=== PATIENT | male | born 1995 | race Hispanic/Latino ===

== ENCOUNTER 2017-11-23 06:41 | Emergency (ER) | payer OTHER ==
[2017-11-23 06:52] VITALS: BMI 23.7
[2017-11-23 06:56] VITALS: BP 142/79; PULSE 84; RESP 16; TEMP 97.6; O2SAT 97
[2017-11-23] MEDS ORDERED: Tdap Vaccine 0.5 ml Vial (10-64 yrs) IM ONE ×2 (07:05→07:47)
[2017-11-23] MEDS ORDERED: Naproxen 500 MG TAB PO ONE ×2 (07:05→07:47)
--- NOTE | 2017-11-23 07:15 | ED PDOC ---
Upper Extremity Pain/Injury Time Seen by Provider: 11/23/17 06:59 Chief Complaint (Nursing): Finger,Hand,&Wrist History Per: Patient (22 yo male here with injury of the right index finger. He closed the car door on it and tried to walk away before he realized it was caught in the door causing hyperextension. He said there was bleeding last night when this happened. There is blood collected under the nail. ) History/Exam Limitations: no limitations Onset/Duration Of Symptoms: Sudden Onset Past Medical History Reviewed: Historical Data Vital Signs: Last Vital Signs Temp 97.6 F 11/23/17 06:52 Pulse 84 11/23/17 06:52 Resp 16 11/23/17 06:52 BP 142/79 11/23/17 06:52 Pulse Ox 97 11/23/17 06:52 - Surgical History Surgical History: No Surg Hx - Family History Family History: States: No Known Family Hx - Immunization History Hx Tetanus Toxoid Vaccination: No - Allergies Allergies/Adverse Reactions: Allergies Allergy/AdvReac Type Severity Reaction Status Date / Time No Known Allergies Allergy Verified 11/23/17 06:51 Review of Systems ROS Statement: Except As Marked, All Systems Reviewed And Found Negative Musculoskeletal: Positive for: Hand Pain (right index finger) Skin: Positive for: Bruising (right index finger nail) Physical Exam - Reviewed Vital Signs Reviewed: Yes - Physical Exam Appears: Positive for: Well, No Acute Distress Head Exam: Positive for: NORMAL INSPECTION, NORMOCEPHALIC Skin: Positive for: Normal Color Eye Exam: Positive for: Normal appearance, EOMI ENT: Positive for: Normal ENT Inspection Neck: Positive for: Supple Respiratory: Negative for: Respiratory Distress Extremity: Positive for: Other (nail hematoma). Negative for: Deformity Neurologic/Psych: Positive for: Alert - ECG O2 Sat by Pulse Oximetry: 97 Medical Decision Making Medical Decision Making: procedure: drainage of blood from subungual hematoma using electrocautery. copious blood was removed. patient feels better. x-rays: no obvious fracture. Disposition - Clinical Impression Clinical Impression: Subungual hematoma of right index finger - Patient ED Disposition Is Patient to be Admitted: No Doctor Will See Patient In The: Office Counseled Patient/Family Regarding: Diagnosis, Need For Followup - Disposition Referrals: Theo Hernandez [Outside] Disposition: Routine/Home Disposition Time: 09:10 Condition: STABLE Instructions: Contusion (DC) Forms: [facility] (Setswana) - POA Present On Arrival: Falls Or Trauma
--- NOTE | 2017-11-23 09:20 | RAD ---
PROCEDURE: Right Hand Radiographs. HISTORY: crush injury 2nd digit COMPARISON: None. FINDINGS: BONES: No acute fracture. JOINTS: Unremarkable. SOFT TISSUES: Normal. OTHER FINDINGS: None. IMPRESSION: No demonstrated fracture or dislocation.
== END 2017-11-23 10:10 | disposition home or self-care (01) ==
LOC: H.ER 06:41
DX: S60.121A Contusion of right index finger with damage to nail, initial encounter (principal); W23.0XXA Caught, crushed, jammed, or pinched between moving objects, initial encounter; Y92.89 Other specified places as the place of occurrence of the external cause